=== PATIENT | female | born 1995 | race Caucasian/White ===

== ENCOUNTER → 2021-03-30 08:57 | Outpatient (REF) | payer OTHER, SELFPAY ==
--- NOTE | 2021-03-30 09:08 | ECG_ITS ---
Test Reason : METHADONE CK QT Blood Pressure : / mmHG Vent. Rate : 079 BPM Atrial Rate : 079 BPM P-R Int : 118 ms QRS Dur : 096 ms QT Int : 422 ms P-R-T Axes : 026 047 024 degrees QTc Int : 483 ms Normal sinus rhythm Prolonged QT Abnormal ECG When compared with ECG of 19-SEP-2018 14:04, No significant change was found Referred By: Glory Hyde Electronically Signed By:Carmine Menendez
== END ==
LOC: HO.CARD 08:57
PROVIDERS: PCP Internal Medicine; Visit Provider Family Medicine
DX: Z79.899 Other long term (current) drug therapy (principal)
CPT/HCPCS: 93005

== ENCOUNTER → 2021-07-11 08:49 | Outpatient (REF) | payer OTHER, SELFPAY ==
--- NOTE | 2021-07-11 09:01 | ECG_ITS ---
Test Reason : methadone dose Blood Pressure : / mmHG Vent. Rate : 069 BPM Atrial Rate : 069 BPM P-R Int : 116 ms QRS Dur : 096 ms QT Int : 434 ms P-R-T Axes : 019 057 035 degrees QTc Int : 465 ms Normal sinus rhythm Nonspecific T wave abnormality RSR' or QR pattern in V1 suggests right ventricular conduction delay Abnormal ECG When compared with ECG of 30-MAR-2021 09:17, Nonspecific T wave abnormality now evident in Lateral leads Referred By: Julian Henson Electronically Signed By:MARITA OLIVAS MD
== END ==
LOC: HO.CARD 08:49
PROVIDERS: PCP Internal Medicine; Visit Provider Internal Medicine
DX: F11.20 Opioid dependence, uncomplicated (principal)
CPT/HCPCS: 93005

== ENCOUNTER 2021-08-11 12:09 | Emergency (ER) | payer OTHER, SELFPAY ==
--- NOTE | ~2021-08-11 | CT_ITS ---
EXAMINATION: CT HEAD WITHOUT CONTRAST CLINICAL INFORMATION: Fall, headache. COMPARISON: None TECHNIQUE: Contiguous axial imaging was performed from the skull base to vertex without intravenous administration of contrast. This CT examination was performed using dose optimization techniques as appropriate, variously including the following: *Automated exposure control *Adjustment of mA and/or kV according to patient size (this includes techniques or standardized protocols for targeted exams where dose is matched to indication/reason for exam; i.e. extremities or head) *Use of iterative reconstruction technique DLP: 649 mGy-cm FINDINGS: There is no evidence of acute intracranial hemorrhage or territorial infarction. No abnormal mass effect or midline shift is seen. Rose to white matter differentiation is well preserved. No extra-axial fluid collections are identified. The ventricles are normal in size. There is no abnormal attenuation within the brain parenchyma. The osseous structures and soft tissues are normal. The mastoid air cells and visualized portions of the paranasal sinuses are well aerated. CT/CT head/brain wo con IMPRESSION: No acute intracranial process seen
[2021-08-11 12:10] VITALS: BP 152/97; PULSE 68; RESP 18; TEMP 36.8; O2SAT 98; BMI 27.4
--- NOTE | 2021-08-11 13:00 | ED.HEATRA ---
HPI - Head Injury General Chief complaint: Fall Stated complaint: headache Time Seen by Provider: 08/11/21 12:59 Source: patient Mode of arrival: ambulatory Limitations: no limitations History of Present Illness MD Complaint: head injury and head pain Onset (ago): day(s) (3) Mechanism of Injury: fall Place: home Loss of Consciousness: no Location of injury: occipital Severity: moderate Quality: aching Radiation: none Other Injuries: none Associated symptoms: nausea, vomiting and other (feels dizzy at times) Related Data Previous Rx's Medication Instructions Recorded esqysarslt-oqadvipmxomjs-fgpzftwe 1 tab PO Q6H PRN #20 tab 08/11/21 50 mg-325 mg-40 mg tablet ibuprofen 600 mg tablet 600 mg PO Q6H PRN #30 tab 08/11/21 ondansetron 4 mg disintegrating 4 mg PO Q8H PRN #20 tab 08/11/21 tablet Allergies Allergy/AdvReac Type Severity Reaction Status Date / Time bee pollen [BEE STINGS] Allergy Unknown ANAPHYLAXSI Unverified 06/01/20 16:15 S. buprenorphine [From SUBOXONE] Allergy Unknown HALLUCINATI Unverified 06/01/20 16:15 ONS naloxone [From SUBOXONE] Allergy Unknown HALLUCINATI Unverified 06/01/20 16:15 ONS Review of Systems Review of Systems: Constitutional : No Fever, No Chills, No Fatigue ENT/Mouth : No sore throat, No Rhinorrhea Eyes: No Eye Pain, No Swelling, No Redness Cardiovascular : No Chest Pain, No SOB, No Dyspnea on Exertion Respiratory : No Cough, No Sputum Gastrointestinal : pos Nausea, pos Vomiting, No Diarrhea, No abdominal Pain Genitourinary : No Dysuria, No Urinary Frequency, No Hematuria, Musculoskeletal : No joint pain, No Myalgias, No Joint Swelling Skin : No Skin Lesions, No rash Neuro : No Weakness, No Numbness, No Dizziness, positive Headache Psych : No Anxiety/Panic, No Depression Heme/Lymph: No Bruising, No Bleeding,No Lymphadenopathy Endocrine : No Polyuria, No Polydipsia All other systems reviewed and are negative [facility] Past Medical History Attestation statement: The following information was validated with the patient. Medical History Murmur, cardiac Social History Social History (Updated 08/11/21 @ 13:42 by Sara Soriano DO) Alcohol intake: never Patient Tobacco Use Status: Current everyday Tobacco user Use of substances other than those prescribed or required for medical reasons: No Substance Use Type: Crack/Cocaine and Heroin Advance Directives: No Advance Directives Information Provided: Yes Patient : No Physical Exam Vital Signs: Vital Signs: Last Vital Signs Temp 98.2 F 08/11/21 12:10 Pulse 61 08/11/21 13:17 Resp 20 08/11/21 13:17 BP 114/79 08/11/21 13:17 Pulse Ox 98 08/11/21 12:10 Body Mass Index 27.4 Appearance: Alert. Oriented X3. No acute distress. Eyes: Pupils equal, round and reactive to light. ENT: Pharynx normal. Normal TMs Neck: Normal inspection. Neck supple. CVS: Normal heart rate and rhythm. Pulses normal. Respiratory: No respiratory distress. Breath sounds normal. Abdomen: Soft and nontender. Skin: Skin warm and dry. Normal skin color. Normal skin turgor. Extremities: No lower extremity edema. No calf ttp Neuro: Oriented X 3. No motor deficit. No sensory deficit. Course Course Course Narrative: negative head CT stable for DC MDM - Head Injury MDM Narrative Medical decision making narrative: 26 yo female with hx of substance abuse reports falling 3 days ago and hitting her head since then worsening headaches with n/v - at this time she is GCS 15 not on oral anti-coagulation. Heron obtain CT head for trauma, medications and anticipate dc home with concussion precautions Lab Data Labs: Lab Results 08/11/21 Range/Units 13:55 Urine Test NEGATIVE (NEGATIVE) Discharge Plan Discharge Clinical Impression: Concussion without loss of consciousness Qualifiers: Encounter type: initial encounter Qualified Code(s): S06.0X0A - Concussion without loss of consciousness, initial encounter Patient Disposition: Home, Self-Care Instructions: Concussion (ED) Additional Instructions: return to ED for any worsening symptoms or concerns Prescriptions: New iyenqjgxqq-ysvzfwhcbjgrm-aern 50-325-40 mg tablet 1 tab PO Q6H PRN (Reason: pain) Qty: 20 RF: 0 ibuprofen 600 mg tablet 600 mg PO Q6H PRN (Reason: pain) Qty: 30 RF: 0 ondansetron 4 mg tablet,disintegrating 4 mg PO Q8H PRN (Reason: nausea and vomiting) Qty: 20 RF: 0 Stand Alone Forms: Work/School Release
[2021-08-11 13:17] VITALS: BP 114/79; PULSE 61; RESP 20
[2021-08-11] MEDS: Ondansetron ODT 4 MG TAB.RAPDIS TRANSLINGU (13:46)
[2021-08-11] MEDS: Butalb/Acetamin/Caff 50/325/40 TABLET 1 TAB PO (13:46)
[2021-08-11 14:18] LABS: UPreg QC Valid YES; Urine Pregnancy NEGATIVE (NEGATIVE)
== END 2021-08-11 15:03 | disposition home or self-care (01) ==
PROVIDERS: Emergency Provider Emergency Medicine; PCP Internal Medicine
DX: S06.0X0A Concussion without loss of consciousness, initial encounter (principal); W18.30XA Fall on same level, unspecified, initial encounter; F17.200 Nicotine dependence, unspecified, uncomplicated; F19.10 Other psychoactive substance abuse, uncomplicated; Y93.9 Activity, unspecified; Y92.039 Unspecified place in apartment as the place of occurrence of the external cause; Y99.9 Unspecified external cause status
CPT/HCPCS: 70450; 81025; 99284

== ENCOUNTER 2022-01-18 06:00 | Emergency (ER) | payer OTHER, SELFPAY ==
--- NOTE | ~2022-01-18 | CT_ITS ---
EXAMINATION: CT ABDOMEN AND PELVIS WITHOUT CONTRAST CLINICAL INFORMATION: Nausea, vomiting, weakness COMPARISON: CT abdomen and pelvis 09/19/2018 TECHNIQUE: Multidetector volumetric imaging was performed from the superior aspect of the liver through the pubic symphysis. Sagittal and coronal reformatted images were obtained on the technologist's workstation. This CT examination was performed using dose optimization techniques as appropriate, variously including the following: *Automated exposure control *Adjustment of mA and/or kV according to patient size (this includes techniques or standardized protocols for targeted exams where dose is matched to indication/reason for exam; i.e. extremities or head) *Use of iterative reconstruction technique DLP: 444 mGy-cm FINDINGS: LUNG BASES: The visualized lung bases are unremarkable. LIVER, GALLBLADDER, AND BILIARY TREE: The liver is normal in size, shape, and attenuation. No focal hepatic lesion or biliary ductal dilatation is present. Incidental note of focal fatty infiltration at the falciform. Gallbladder is unremarkable. PANCREAS: Unremarkable. SPLEEN: Unremarkable. ADRENAL GLANDS: Unremarkable. KIDNEYS AND URETERS: The kidneys are normal in size, shape, and attenuation. No hydronephrosis, or hydroureter. There are several nonobstructing renal calculi. The largest on the right is a 4 mm mid pole calculus located 6.1 cm from the posterior mid axillary line. There are 2 punctate calculi at the lower pole the left kidney, 6.1 cm from posterior midaxillary line. There is no significant perinephric stranding. No ureteral calculi are seen. BLADDER: Partially distended, normal in contour. No bladder calculi or bladder lesions. GASTROINTESTINAL TRACT: The esophagus and stomach are unremarkable. The small and large bowel are normal in caliber. There is question minimal wall thickening/reactive change at the mid ascending colon best appreciated on coronal images. No other bowel wall inflammatory changes are seen. There is a normal appendix (coronal image 30, series 7) ABDOMINAL WALL: No significant hernia is appreciated. LYMPH NODES: Normal. VASCULAR: Unremarkable. PELVIC VISCERA: Uterus is unremarkable. There is a low-attenuation 3.2 x 1.9 cm structure within the left adnexa, possibly representing a cyst. Right adnexa is unremarkable. There is trace fluid in the cul-de-sac which may be physiologic. OSSEOUS STRUCTURES: Unremarkable. CT/CT abdomen pelvis wo con IMPRESSION: Equivocal mild wall thickening and reactive change associated with a short segment of the ascending colon. Would correlate for colitis. Low-attenuation 3.2 x 1.9 cm structure within the left adnexa which may represent a cyst and a small amount of fluid in the pelvis which may be physiologic in a patient of this age. Further evaluation with ultrasound could be considered. Bilateral nonobstructing renal calculi. Fleischner guidelines were followed.
[2022-01-18 06:10] VITALS: BP 124/78; PULSE 74; RESP 18; TEMP 37.6; O2SAT 99; BMI 25.6
--- NOTE | 2022-01-18 06:45 | ED_ITS ---
HPI - Nausea/Vomiting/Diarrhea General Chief complaint: Nausea/Vomiting/Diarrhea Stated complaint: Vomiting Time Seen by Provider: 01/18/22 06:14 History of Present Illness HPI Narrative: Patient is 26-year-old female presents today with having nausea vomiting diarrhea started last night. A long history of being on methadone. Patient presents today with nausea vomiting generalized malaise question diarrhea. Vomiting initially mostly food then subsequently have very small streaks of blood. MD elicited complaint: nausea and vomiting Related Data Home Medications Medication Instructions Recorded Confirmed buspirone 15 mg tablet 1 tab PO BID 01/18/22 01/18/22 clonidine HCl 0.1 mg tablet 1 tab PO TID 01/18/22 01/18/22 clonidine HCl 0.2 mg tablet 1 tab PO TID 01/18/22 01/18/22 methadone 10 mg/mL oral concentrate 150 mg PO DAILY 01/18/22 01/18/22 propranolol 20 mg tablet 1 tab PO BID 01/18/22 01/18/22 Previous Rx's Medication Instructions Recorded ondansetron 4 mg disintegrating 4 mg PO TID PRN 5 Days #10 tab 01/18/22 tablet Allergies Allergy/AdvReac Type Severity Reaction Status Date / Time bee pollen [BEE STINGS] Allergy Unknown ANAPHYLAXSI Verified 01/18/22 06:28 S. buprenorphine [From SUBOXONE] Allergy Unknown HALLUCINATI Verified 01/18/22 06:28 ONS naloxone [From SUBOXONE] Allergy Unknown HALLUCINATI Verified 01/18/22 06:23 ONS Review of Systems Review of Systems: No fever no chills Positive nausea vomiting Positive generalized malaise Yes all other systems are reviewed and are negative [facility] Past Medical History Attestation statement: The following information was validated with the patient. Medical History Murmur, cardiac Social History Social History Alcohol intake: unknown Patient Tobacco Use Status: Current everyday Tobacco user Use of substances other than those prescribed or required for medical reasons: Yes Substance Use Type: Crack/Cocaine and Heroin Advance Directives: No Patient : No Physical Exam Vital Signs: Vital Signs: Last Vital Signs Temp 99.6 F 01/18/22 06:10 Pulse 71 05/06/22 10:38 Resp 18 01/18/22 10:38 BP 106/53 L 01/18/22 10:38 Pulse Ox 97 01/18/22 10:38 BMI result Body Mass Index 25.6 Appearance: Alert. Oriented X3. No acute distress. Eyes: Pupils equal, round and reactive to light. ENT: Pharynx normal. Neck: Normal inspection. Neck supple. No lymph nodes noted. No crepitus CVS: Normal heart rate and rhythm. Pulses normal. Normal S1 and S2 Respiratory: No respiratory distress. Breath sounds normal. No Wheezing. No rales Abdomen: Soft and nontender. No rigidity. No distention. good BS x4 Skin: Skin warm and dry. Normal skin color. Normal skin turgor. Extremities: No lower extremity edema. Neurovascular intact to all extremities. No Lacerations. No Rash Neuro: Oriented X 3. No motor deficit. No sensory deficit. Moving all extermities. No slurred speech MDM - Nausea/Vomiting/Diarrhea MDM Narrative Medical decision making narrative: Patient is fair appearing. Had nausea vomiting diarrhea. An external jugular IV was placed by myself without any complication on left side. Has a long history abusing opioids. Currently on methadone. Patient given her dose of methadone after the dose of verified. Patient also admitted to using cocaine last night. Patient's electrolytes are unremarkable. IV fluids given x2 L. Zofran given for nausea. Symptomatic lead improved. Patient's CT scan of the abdomen showed no obstruction or abscess. ? Colitis bruit will discharge patie nt home. Medical Records Attestation: I reviewed the patient's medical records. Lab Data Attestation: I reviewed the patient's lab results. Result diagrams: 01/18/22 09:44 01/18/22 09:44 Labs: Lab Results 01/18/22 01/18/22 01/18/22 Range/Units 06:55 09:44 09:44 WBC 12.5 H (4.8-10.8) X10*3/uL RBC 4.32 (4.20-5.50) X10*6/uL Hgb 12.8 (12.0-16.0) g/dl Hct 36.8 L (37.0-47.0) % MCV 85.2 (80.0-98.0) fL MCH 29.6 (27.0-33.0) pg MCHC 34.8 (31.0-35.0) g/dl RDW 12.7 (11.0-16.0) % Plt Count 129 L (160-400) X10*3/uL MPV 13.0 H (9.4-12.3) fL Immature Gran % (Auto) 0.3 (0.0-0.4) % Neut % (Auto) 76.8 H (45-73) % Lymph % (Auto) 18.4 L (20-40) % [facility] [facility] % (Auto) 4.3 (2-11) % Eos % (Auto) 0.0 (0-4) % Baso % (Auto) 0.2 (0-2) % Lymph # (Auto) 2.3 (1.2-4.9) X10*3/uL [facility] [place] [facility] # (Auto) 0.5 (0.1-1.2) X10*3/uL Eos # (Auto) 0.0 (0.0-0.4) X10*3/uL Baso # (Auto) 0.0 (0.0-0.2) X10*3/uL Abs Immat Gran (auto) 0.04 H (0.00-0.03) X10*3/uL Absolute Neuts (auto) 9.6 H (2.0-8.3) x10*3/uL Absolute Nucleated RBC 0.000 (0.0-0.012) X10*3/uL Nucleated RBC % (auto) 0.0 (0.0-0.2) /100WBC Sodium 139 (135-145) mmol/L Potassium 3.7 (3.3-5.1) mmol/L Chloride 104 (96-108) mmol/L Carbon Dioxide 21 L (22-29) mmol/L Anion Gap 18 (12-20) BUN 8 L (9-16) mg/dL Creatinine 0.82 (0.5-1.4) mg/dL Estim Creat Clear Calc 90.2 Estimated GFR > 60 Random Glucose 129 H (60-115) mg/dL Calcium 10.2 (8.4-10.2) mg/dL Total Bilirubin 0.6 (0.0-1.0) mg/dL Direct Bilirubin 0.3 (0.0-0.5) mg/dL AST 23 (5-31) U/L ALT 21 (0-31) U/L Alkaline Phosphatase 63 (39-117) U/L Total Protein 7.9 (6.5-8.0) g/dL Albumin 4.8 (3.5-5.0) g/dL Lipase 5 L (8-78) U/L Beta HCG, Quant < 2 mIU/mL COVID-19 (JANINE) Negative (Negative) COVID-19 Clin Com See Note Discharge Plan Discharge Clinical Impression: Dehydration, Nausea and vomiting, Diarrhea Patient Disposition: Home, Self-Care Instructions: Cocaine Abuse (ED), Acute Nausea and Vomiting (ED), Acute Diarrhea (ED) Prescriptions: New ondansetron 4 mg tablet,disintegrating 4 mg PO TID PRN (Reason: nausea and vomiting) 5 Days Qty: 10 0RF No Action clonidine HCl 0.1 mg tablet 1 tab PO TID 0RF propranolol 20 mg tablet 1 tab PO BID 0RF buspirone 15 mg tablet 1 tab PO BID 0RF clonidine HCl 0.2 mg tablet 1 tab PO TID 0RF methadone 10 mg/mL Concentrate 150 mg PO DAILY 0RF Referrals: Physician,Unknown J [Primary Care Provider] - (Please follow-up with your primary physician. Please stop using recreational drugs. Close follow-up on an outpatient basis for)
[2022-01-18 07:20] LABS: COVID-19 Test Negative (Negative)
[2022-01-18] MEDS: methADONE HCl 20 MG/2 ML ORAL.CONC 150 MG PO (08:22)
[2022-01-18] MEDS: ondansetron HCL 4 MG/2 ML VIAL IVPUSH ×2 (09:46→13:44)
[2022-01-18 09:47] LABS: MANUAL DIFF FLAG NO
[2022-01-18] MEDS: 0.9 % Sodium Chloride 1,000 ML 999 ML IV ×2 (09:47→12:05)
[2022-01-18 09:52] LABS: Basophils Percent Auto 0.2 % (0-2); Hematocrit 36.8 % (37.0-47.0); Hemoglobin 12.8 g/dl (12.0-16.0); Imm Gran Abs Auto 0.04 X10*3/uL (0.00-0.03); Imm Gran Pct Auto 0.3 % (0.0-0.4); Lymphocytes Absolute Auto 2.3 X10*3/uL (1.2-4.9); Lymphocytes Percent Auto 18.4 % (20-40); Mean Corpuscular HGB Conc 34.8 g/dl (31.0-35.0); Mean Corpuscular Hemoglobin 29.6 pg (27.0-33.0); Mean Corpuscular Volume 85.2 fL (80.0-98.0); Monocytes Absolute Auto 0.5 X10*3/uL (0.1-1.2); Monocytes Percent Auto 4.3 % (2-11); Neutrophils Absolute Auto 9.6 x10*3/uL (2.0-8.3); Neutrophils Percent Auto 76.8 % (45-73); Platelet Count 129 X10*3/uL (160-400); Red Blood Count 4.32 X10*6/uL (4.20-5.50); Red Cell Distribution Width 12.7 % (11.0-16.0); White Blood Count 12.5 X10*3/uL (4.8-10.8)
[2022-01-18 10:05] LABS: Alanine Aminotransferase 21 U/L (0-31); Albumin Level 4.8 g/dL (3.5-5.0); Alkaline Phosphatase 63 U/L (39-117); Anion Gap 18 (12-20); Aspartate Amino Transferase 23 U/L (5-31); Bilirubin Direct 0.3 mg/dL (0.0-0.5); Bilirubin Total 0.6 mg/dL (0.0-1.0); Blood Urea Nitrogen 8 mg/dL (9-16); Calcium 10.2 mg/dL (8.4-10.2); Carbon Dioxide 21 mmol/L (22-29); Chloride 104 mmol/L (96-108); Creatinine Clr Calc Pharmacy 90.2; Estimated Glomerular Filt Rate > 60; Glucose Random 129 mg/dL (60-115); Lipase 5 U/L (8-78); Potassium 3.7 mmol/L (3.3-5.1); Sodium 139 mmol/L (135-145); Total Protein 7.9 g/dL (6.5-8.0)
[2022-01-18 10:11] LABS: HCG Quantitative < 2 mIU/mL
--- NOTE | 2022-01-18 10:28 | PC.NURSE ---
pt with difficult veins for IV placement, Dr Long did a left EJ without incidience and IV fluids and labs done. Still has episodes of some vomiting and with that she has epigastric pain. Going to CT at this timept with vomiting for 3 days and feels paralyzed , she is moving all her extremities. VSS pain is middle of abdomen.
[2022-01-18 10:38] VITALS: BP 106/53; PULSE 71; RESP 18; O2SAT 97
[2022-01-18 13:45] VITALS: BP 98/51; PULSE 74; RESP 15; O2SAT 96
== END 2022-01-18 15:03 | disposition home or self-care (01) ==
PROVIDERS: Emergency Provider Emergency Medicine Emergency Medical Services
DX: E86.0 Dehydration (principal); R11.2 Nausea with vomiting, unspecified; R19.7 Diarrhea, unspecified; F11.20 Opioid dependence, uncomplicated; Z20.822 Contact with and (suspected) exposure to COVID-19
CPT/HCPCS: 36410; 36415; 74176; 80048; 80076; 83690; 84702; 85025; 87635; 96361; 96374; 96376; 99285; J2405

== ENCOUNTER 2022-02-24 06:57 | Emergency (ER) | payer OTHER, SELFPAY ==
--- NOTE | ~2022-02-24 | CT_ITS ---
EXAMINATION: CT ABDOMEN AND PELVIS WITHOUT CONTRAST CLINICAL INFORMATION: Right flank pain and hematuria COMPARISON: Previous CT of the abdomen and pelvis January 2022 TECHNIQUE: Multidetector volumetric imaging was performed from the superior aspect of the liver through the pubic symphysis. Sagittal and coronal reformatted images were obtained on the technologist's workstation. This CT examination was performed using dose optimization techniques as appropriate, variously including the following: *Automated exposure control *Adjustment of mA and/or kV according to patient size (this includes techniques or standardized protocols for targeted exams where dose is matched to indication/reason for exam; i.e. extremities or head) *Use of iterative reconstruction technique DLP: 397 mGy-cm FINDINGS: LUNG BASES: The visualized lung bases are unremarkable. LIVER, GALLBLADDER, AND BILIARY TREE: The liver is normal in size, shape, and attenuation. No focal hepatic lesion or biliary ductal dilatation is present. The gallbladder is unremarkable with no evidence of radiopaque gallstones, gallbladder wall thickening, or obvious pericholecystic inflammatory changes. PANCREAS: Unremarkable. SPLEEN: Unremarkable. ADRENAL GLANDS: Unremarkable. KIDNEYS AND URETERS: There is mild right ureteral dilatation. There are 2 new small right pelvic calcifications measuring 2 mm axial image 65 and 4 mm axial image 67 series 3 questionable for distal ureteral stones. There is no hydronephrosis. There are small bilateral renal stones. Largest stone measures 3 mm in the lower pole of the right kidney. BLADDER: Unremarkable. GASTROINTESTINAL TRACT: The small and large bowel are unremarkable. The appendix is unremarkable. ABDOMINAL WALL: No significant hernia is appreciated. LYMPH NODES: Normal. VASCULAR: Unremarkable. PELVIC VISCERA: Unremarkable. OSSEOUS STRUCTURES: Unremarkable. CT/CT abdomen pelvis wo con IMPRESSION: Small bilateral renal stones. Mild right ureteral dilatation and question 2 new right distal ureteral stones measuring 2 and 4 mm. Fleischner guidelines were followed.
[2022-02-24 07:00] VITALS: BP 131/91; PULSE 74; RESP 18; TEMP 36.1; O2SAT 100; BMI 24.7
[2022-02-24 07:26] LABS: Appearance Urine CLEAR; Color Urine YELLOW; Glucose Urine UA NEG (NEG); Leukocyte Esterase Urine 1+ (NEG); Nitrite Urine NEG (NEG); Specific Gravity - Urine <= 1.005 (1.005-1.025); UACC Culture Trigger YES; Urine Blood 3+ (NEG); Urine Ketones NEG (NEG); Urine Protein NEG (NEG-TRACE)
[2022-02-24 07:56] LABS: MANUAL DIFF FLAG NO
[2022-02-24 08:02] LABS: Basophils Percent Auto 0.3 % (0-2); Eosinophils Absolute Auto 0.3 X10*3/uL (0.0-0.4); Eosinophils Percent Auto 4.2 % (0-4); Hematocrit 41.7 % (37.0-47.0); Hemoglobin 13.4 g/dl (12.0-16.0); Imm Gran Abs Auto 0.02 X10*3/uL (0.00-0.03); Imm Gran Pct Auto 0.3 % (0.0-0.4); Lymphocytes Absolute Auto 3.1 X10*3/uL (1.2-4.9); Lymphocytes Percent Auto 43.7 % (20-40); Mean Corpuscular HGB Conc 32.1 g/dl (31.0-35.0); Mean Corpuscular Hemoglobin 28.7 pg (27.0-33.0); Mean Corpuscular Volume 89.3 fL (80.0-98.0); Mean Platelet Volume 12.6 fL (9.4-12.3); Monocytes Absolute Auto 0.6 X10*3/uL (0.1-1.2); Monocytes Percent Auto 7.9 % (2-11); Neutrophils Absolute Auto 3.1 x10*3/uL (2.0-8.3); Neutrophils Percent Auto 43.6 % (45-73); Platelet Count 135 X10*3/uL (160-400); Red Blood Count 4.67 X10*6/uL (4.20-5.50); Red Cell Distribution Width 12.5 % (11.0-16.0); White Blood Count 7.1 X10*3/uL (4.8-10.8)
[2022-02-24 08:12] LABS: Anion Gap 14 (12-20); Blood Urea Nitrogen 5 mg/dL (9-16); Calcium 9.8 mg/dL (8.4-10.2); Carbon Dioxide 28 mmol/L (22-29); Chloride 101 mmol/L (96-108); Creatinine Clr Calc Pharmacy 79.2; Estimated Glomerular Filt Rate > 60; Glucose Random 100 mg/dL (60-115); Potassium 4.3 mmol/L (3.3-5.1); Sodium 139 mmol/L (135-145)
[2022-02-24 08:13] VITALS: BP 123/64; PULSE 65; RESP 18; TEMP 37; O2SAT 99
[2022-02-24 08:15] LABS: Squamous Epithelial Cell Urine 2+ /LPF; UACC CULT YES
[2022-02-24 08:16] LABS: UPreg QC Valid YES; Urine Pregnancy NEGATIVE (NEGATIVE)
--- NOTE | 2022-02-24 08:19 | PC.NURSE ---
patient A/O x4 .c/o 4 days of increased urination , pain and small amount of blood in urine . prior history of UTI . labs and urinalysis sent , results pending . call banks within reach .
--- NOTE | 2022-02-24 08:23 | ED_ITS ---
HPI - Female Genitourinary General Chief complaint: Urogenital-Female Stated complaint: Blood in urine/?UTI Time Seen by Provider: 02/24/22 07:36 Source: patient Mode of arrival: ambulatory Limitations: no limitations History of Present Illness HPI Narrative: 27-year-old female came in for evaluation of urinary frequency and dysuria for the past 3 days, started initially by seen blood in the urine, patient confirmed that she is not or on her menses, the patient started to few urinary frequency with dysuria and burning sensation with urination now pain is more constant radiating toward right flank area. No anorexia, felt nauseous earlier but resolved, no vomiting, no fever. Similar to her previous UTI, never had abdominal surgery in the past. Related Data Home Medications Medication Instructions Recorded Confirmed buspirone 15 mg tablet 1 tab PO BID 01/18/22 01/18/22 clonidine HCl 0.1 mg tablet 1 tab PO TID 01/18/22 01/18/22 clonidine HCl 0.2 mg tablet 1 tab PO TID 01/18/22 01/18/22 methadone 10 mg/mL oral concentrate 150 mg PO DAILY 01/18/22 01/18/22 propranolol 20 mg tablet 1 tab PO BID 01/18/22 01/18/22 Previous Rx's Medication Instructions Recorded ondansetron 4 mg disintegrating 4 mg PO TID PRN nausea and 01/18/22 tablet vomiting 5 days #10 tabs nitrofurantoin 100 mg PO BID #14 caps 02/24/22 monohydrate/macrocrystals 100 mg capsule (Macrobid) Allergies Allergy/AdvReac Type Severity Reaction Status Date / Time bee pollen [BEE STINGS] Allergy Unknown ANAPHYLAXSI Verified 01/18/22 06:28 S. buprenorphine [From SUBOXONE] Allergy Unknown HALLUCINATI Verified 01/18/22 06:28 ONS naloxone [From SUBOXONE] Allergy Unknown HALLUCINATI Verified 01/18/22 06:23 ONS Review of Systems Review of Systems: All other systems are reviewed and are negative Constitutional: Reports as per HPI and Reports no additional constitutional complaints Eyes: Reports as per HPI and Reports no additional eye complaints Reports system reviewed and no additional complaints, except as documented Cardiovascular: Reports as per HPI and Reports no additional cardiovascular complaints Respiratory: Reports as per HPI and Reports no additional respiratory complaints Gastrointestinal: Reports as per HPI and Reports no additional gastrointestinal complaints Genitourinary: Reports no additional female genitourinary complaints Musculoskeletal: Reports no additional musculoskeletal complaints Skin/Breast: Reports system reviewed and no additional complaints, except as docu Psychiatric: Reports no additional psychiatric complaints Endocrine: Reports no additional endocrine complaints Hematologic/Lymphatic: Reports no additional hematologic/lymphatic complaints Allergic/Immunologic: Reports no additional allergic/immunologic complaints Reports system reviewed and no additional complaints, except as documented and Reports Abnormal speech present [facility] Past Medical History Medical History Murmur, cardiac Social History Social History Alcohol intake: unknown Patient Tobacco Use Status: Current everyday Tobacco user Use of substances other than those prescribed or required for medical reasons: Yes Substance Use Type: Marijuana Last Used Substance: Days (ago) Any prior treatment program specific to substance use: No Advance Directives: No Patient : No Physical Exam Vital Signs: Vital Signs: Last Vital Signs Temp 98.6 F 02/24/22 08:13 Pulse 65 02/24/22 08:13 Resp 18 02/24/22 08:13 BP 123/64 02/24/22 08:13 Pulse Ox 99 02/24/22 08:13 O2 Del Method 02/24/22 08:13 BMI result Body Mass Index 24.7 Vital signs have been reviewed as appeared to be correct. Blood pressure nor mal. Heart rate normal. Respiration rate normal. Temperature normal. Oxygen saturation normal. Appearance: Alert. Oriented X3. No acute distress. Head: Normal external exam. Normocephalic. Atraumatic. No Orr signs noted. No raccoon eyes noted Eyes: PERRLA. EOMI. Conjunctiva and sclera normal. Eyelids normal. ENT: TM's Normal. Pharynx normal. Uvula midline. Moist mucous membranes. No trismus noted. No drooling noted. No muffled voice noted. Neck: Normal inspection. Neck supple. FROM. No adenopathy. Thyroid Normal. No meningeal signs. No neck mass noted. CVS: Normal heart rate and rhythm. Heart sound normal. No murmurs noted. Pulses normal throughout. Respiratory: No respiratory distress. Painless inspiration. Breath sounds normal. No wheezes/rales/rhonchi noted. Chest nontender. No accessory muscle usage noted or decreased air movement noted. Abdomen: Soft, right lower quadrant tenderness, no rebound tenderness.. Bowel sounds normal in all 4 quadrants. No distention noted. No organomegaly noted. No visible injury noted. Back: Right CVA tenderness. Full range of motion noted. Skin: Skin warm and dry. Normal skin color. Normal skin turgor. No rashes/lesions/lacerations noted. Extremities: No lower extremity edema. Extremities exhibit normal range of motion. Extremities nontender. Neuro: Oriented X 3. Cranial nerve exam: II-XII are grossly intact No motor deficit. No sensory deficit. Reflexes normal. Course Course Course Narrative: Assessment and plan. 27 years old female came in for dysuria, urinary frequency and hematuria Physical exam and the CT is consistent with a kidney stone, however patient has no pain. Will start the patient on Macrobid and drinking plenty of fluids. MDM - Female Genitourinary Lab Data Attestation: I reviewed the patient's lab results. Result diagrams: 02/24/22 07:51 02/24/22 07:51 Labs: Lab Results 02/24/22 02/24/22 02/24/22 Range/Units 07:10 07:51 07:51 WBC 7.1 (4.8-10.8) X10*3/uL RBC 4.67 (4.20-5.50) X10*6/uL Hgb 13.4 (12.0-16.0) g/dl Hct 41.7 (37.0-47.0) % MCV 89.3 (80.0-98.0) fL MCH 28.7 (27.0-33.0) pg MCHC 32.1 (31.0-35.0) g/dl RDW 12.5 (11.0-16.0) % Plt Count 135 L (160-400) X10*3/uL MPV 12.6 H (9.4-12.3) fL Immature Gran % (Auto) 0.3 (0.0-0.4) % Neut % (Auto) 43.6 L (45-73) % Lymph % (Auto) 43.7 H (20-40) % [place] % (Auto) 7.9 (2-11) % Eos % (Auto) 4.2 H (0-4) % Baso % (Auto) 0.3 (0-2) % Lymph # (Auto) 3.1 (1.2-4.9) X10*3/uL [place] # (Auto) 0.6 (0.1-1.2) X10*3/uL Eos # (Auto) 0.3 (0.0-0.4) X10*3/uL Baso # (Auto) 0.0 (0.0-0.2) X10*3/uL Abs Immat Gran (auto) 0.02 (0.00-0.03) X10*3/uL Absolute Neuts (auto) 3.1 (2.0-8.3) x10*3/uL Absolute Nucleated RBC 0.000 (0.0-0.012) X10*3/uL Nucleated RBC % (auto) 0.0 (0.0-0.2) /100WBC Sodium 139 (135-145) mmol/L Potassium 4.3 (3.3-5.1) mmol/L Chloride 101 (96-108) mmol/L Carbon Dioxide 28 (22-29) mmol/L Anion Gap 14 (12-20) BUN 5 L (9-16) mg/dL Creatinine 0.91 (0.5-1.4) mg/dL Estim Creat Clear Calc 79.2 Estimated GFR > 60 Random Glucose 100 (60-115) mg/dL Calcium 9.8 (8.4-10.2) mg/dL Urine Color YELLOW Urine Appearance CLEAR Urine pH 6.0 (5.0-8.0) Ur Specific [place] <= 1.005 (1.005-1.025) Urine Protein NEG (NEG-TRACE) MG/DL Urine Glucose (UA) NEG (NEG) MG/DL Urine Ketones NEG (NEG) MG/DL Urine Blood 3+ H (NEG) Urine Nitrite NEG (NEG) Ur Leukocyte Esterase 1+ H (NEG) Urine RBC 10-14 H (0) /HPF Urine WBC 5-9 H (0-4) /HPF Ur Squamous Epith Cells 2+ /LPF Urine Bacteria NONE /LPF Urine Test (NEGATIVE) 02/24/22 Range/Units 07:51 WBC (4.8-10.8) X10*3/uL RBC (4.20-5.50) X10*6/uL Hgb (12.0-16.0) g/dl Hct (37.0-47.0) % MCV (80.0-98.0) fL MCH (27.0-33.0) pg MCHC (31.0-35.0) g/dl RDW (11.0-16.0) % Plt Count (160-400) X10*3/uL MPV (9.4-12.3) fL Immature Gran % (Auto) (0.0-0.4) % Neut % (Auto) (45-73) % Lymph % (Auto) (20-40) % [place] % (Auto) (2-11) % Eos % (Auto) (0-4) % Baso % (Auto) (0-2) % Lymph # (Auto) (1.2-4.9) X10*3/uL [place] # (Auto) (0.1-1.2) X10*3/uL Eos # (Auto) (0.0-0.4) X10*3/uL Baso # (Auto) (0.0-0.2) X10*3/uL Abs Immat Gran (auto) (0.00-0.03) X10*3/uL Absolute Neuts (auto) (2.0-8.3) x10*3/uL Absolute Nucleated RBC (0.0-0.012) X10*3/uL Nucleated RBC % (auto) (0.0-0.2) /100WBC Sodium (135-145) mmol/L Potassium (3.3-5.1) mmol/L Chloride (96-108) mmol/L Carbon Dioxide (22-29) mmol/L Anion Gap (12-20) BUN (9-16) mg/dL Creatinine (0.5-1.4) mg/dL Estim Creat Clear Calc Estimated GFR Random Glucose (60-115) mg/dL Calcium (8.4-10.2) mg/dL Urine Color Urine Appearance Urine pH (5.0-8.0) Ur Specific [place] (1.005-1.025) Urine Protein (NEG-TRACE) MG/DL Urine Glucose (UA) (NEG) MG/DL Urine Ketones (NEG) MG/DL Urine Blood (NEG) Urine Nitrite (NEG) Ur Leukocyte Esterase (NEG) Urine RBC (0) /HPF Urine WBC (0-4) /HPF Ur Squamous Epith Cells /LPF Urine Bacteria /LPF Urine Test NEGATIVE (NEGATIVE) Imaging Data CT scan - abdomen: Attestation: I personally reviewed and interpreted this imaging study as follows: Radiologist's impression: Small bilateral renal stones. Mild right ureteral dilatation and question 2 new right distal ureteral stones measuring 2 and 4 mm. Discharge Plan Discharge Clinical Impression: Urinary tract infection, Kidney stone Patient Disposition: Home, Self-Care Instructions: Kidney Stones (ED), Urinary Tract Infection in Women (ED) Prescriptions: New nitrofurantoin monohyd/m-cryst [Macrobid] 100 mg capsule 100 mg PO BID Qty: 14 0RF Rx Instructions: must administer with a meal/food No Action clonidine HCl 0.1 mg tablet 1 tab PO TID propranolol 20 mg tablet 1 tab PO BID buspirone 15 mg tablet 1 tab PO BID clonidine HCl 0.2 mg tablet 1 tab PO TID methadone 10 mg/mL Concentrate 150 mg PO DAILY ondansetron 4 mg tablet,disintegrating 4 mg PO TID PRN (Reason: nausea and vomiting) 5 Days Qty: 10 0RF Referrals: Kolton Pruitt III, MD [Primary Care Provider] -
[2022-02-24] MEDS: Nitrofurantoin Monohyd/M-Cryst 100 MG CAPSULE PO (09:24)
== END 2022-02-24 10:30 | disposition home or self-care (01) ==
PROVIDERS: Emergency Provider Emergency Medicine; PCP Internal Medicine
DX: N39.0 Urinary tract infection, site not specified (principal); N20.0 Calculus of kidney
CPT/HCPCS: 36415; 74176; 80048; 81001; 81025; 85025; 87086; 99284

== ENCOUNTER 2022-06-04 06:41 | Emergency (ER) | payer OTHER, SELFPAY ==
[2022-06-04 07:05] VITALS: BP 129/76; PULSE 76; RESP 16; TEMP 36.6; O2SAT 100; BMI 23.8
[2022-06-04 09:40] VITALS: BP 108/56; PULSE 55; RESP 16; O2SAT 99
--- NOTE | 2022-06-04 09:45 | ED.NAVMDI ---
HPI - Nausea/Vomiting/Diarrhea General Chief complaint: Nausea/Vomiting/Diarrhea Stated complaint: vomiting Time Seen by Provider: 06/04/22 09:45 Source: patient Mode of arrival: ambulatory Limitations: no limitations History of Present Illness HPI Narrative: vomiting for the past few days MD elicited complaint: nausea, vomiting and diarrhea Onset (ago): day(s) Associated nausea: Yes Associated abdominal pain: Yes Severity: mild Associated symptoms: denies other symptoms Related Data Home Medications Medication Instructions Recorded Confirmed buspirone 15 mg tablet 1 tab PO BID 01/18/22 01/18/22 clonidine HCl 0.1 mg tablet 1 tab PO TID 01/18/22 01/18/22 clonidine HCl 0.2 mg tablet 1 tab PO TID 01/18/22 01/18/22 methadone 10 mg/mL oral concentrate 150 mg PO DAILY 01/18/22 01/18/22 propranolol 20 mg tablet 1 tab PO BID 01/18/22 01/18/22 Previous Rx's Medication Instructions Recorded ondansetron 4 mg disintegrating 4 mg PO TID PRN nausea and 01/18/22 tablet vomiting 5 days #10 tabs nitrofurantoin 100 mg PO BID #14 caps 02/24/22 monohydrate/macrocrystals 100 mg capsule (Macrobid) ondansetron 4 mg disintegrating 4 mg PO Q8H 4 days #12 tabs 06/04/22 tablet Allergies Allergy/AdvReac Type Severity Reaction Status Date / Time bee pollen [BEE STINGS] Allergy Unknown ANAPHYLAXSI Verified 01/18/22 06:28 S. buprenorphine [From SUBOXONE] Allergy Unknown HALLUCINATI Verified 01/18/22 06:28 ONS naloxone [From SUBOXONE] Allergy Unknown HALLUCINATI Verified 01/18/22 06:23 ONS Review of Systems Constitutional: Constitutional: Reports no additional constitutional complaints Eyes: Eyes: Reports no additional eye complaints ENT: Denies dizziness Cardiovascular: Cardiovascular: Reports no additional cardiovascular complaints Respiratory: Respiratory: Reports as per HPI Gastrointestinal: Gastrointestinal: Reports nausea Genitourinary: Genitourinary: Reports no additional female genitourinary complaints Musculoskeletal: Musculoskeletal: Reports no additional musculoskeletal complaints Integumentary/Breasts: Skin/Breast: Denies rash Neurologic: Reports system reviewed and no additional complaints, except as documented, Denies dizziness and Denies Sensory deficit (Neuro) Psychiatric: Psychiatric: Denies anxiety PMFSH Past Medical History Medical History Murmur, cardiac Social History Social History Alcohol intake: unknown Patient Tobacco Use Status: Current everyday Tobacco user Use of substances other than those prescribed or required for medical reasons: No Substance Use Type: Marijuana Advance Directives: No Advance Directives Information Provided: No Physical Exam Vital Signs: Vital Signs: Last Vital Signs Temp 98.1 F 06/04/22 10:13 Pulse 55 06/04/22 10:13 Resp 14 06/04/22 10:13 BP 97/52 L 06/04/22 10:13 Pulse Ox 98 06/04/22 10:13 O2 Del Method 06/04/22 10:13 BMI result Body Mass Index 23.8 Const: General: healthy appearing Nutritional Appearance: average body habitus Orientation/consciousness: oriented to person and patient oriented x3 Limitations: no limitations HEENT: Head: Yes normal to inspection Ears: external ears normal General nose exam: Normal external nose present Mouth: Normal oral and palatal mucosa present and oropharynx normal Throat: Yes posterior oropharynx normal Eyes: General: appearance normal, both eyes and all related structures Neck: Other: supple Neck: Yes normal visual inspection Chest: Chest palpation & inspection: normal inspection of the chest Resp: Auscultation: clear to auscultation bilaterally Cardio: Jugular venous distension: no JVD Rate: regular rate Rhythm: regular rhythm Heart sounds: S1 normal heart sound present and S2 normal heart sound present GI: Inspection: Yes normal to inspection Palpation (GI): Soft to palpation, nontender and No hepatosplenomegaly present Auscultation: normal bowel sounds : General: Yes no CVA tenderness Back/Spine/Pelvis: Back: no CVA tenderness Skin: General skin exam: no rashes or lesions noted Neuro: General: oriented to person and patient oriented x3 Cranial nerves: Yes CN's II-XII intact bilaterally Motor exam (neuro): 5/5 motor strength present throughout Sensory Exam: No Sensory deficit (Neuro) Extrem: General: Yes normal to inspection Psych: Appearance: grossly normal Course Reevaluation(s) Reevaluation #1: covid negative will dc on zofran for gastroenteritis Time: 11:14 MDM - Nausea/Vomiting/Diarrhea Lab Data Labs: Lab Results 06/04/22 Range/Units 10:01 COVID-19 (JANINE) Negative (Negative) COVID-19 Clin Com See Note Discharge Plan Discharge Clinical Impression: Gastroenteritis Patient Disposition: Home, Self-Care Instructions: Acute Nausea and Vomiting (ED), Acute Diarrhea (ED) Prescriptions: New ondansetron 4 mg tablet,disintegrating 4 mg PO Q8H 4 Days Qty: 12 0RF No Action nitrofurantoin monohyd/m-cryst [Macrobid] 100 mg capsule 100 mg PO BID Qty: 14 0RF Rx Instructions: must administer with a meal/food clonidine HCl 0.1 mg tablet 1 tab PO TID propranolol 20 mg tablet 1 tab PO BID buspirone 15 mg tablet 1 tab PO BID clonidine HCl 0.2 mg tablet 1 tab PO TID methadone 10 mg/mL Concentrate 150 mg PO DAILY ondansetron 4 mg tablet,disintegrating 4 mg PO TID PRN (Reason: nausea and vomiting) 5 Days Qty: 10 0RF Referrals: Kolton Pruitt III, MD [Primary Care Provider] - 1 week Stand Alone Forms: Work/School Release
[2022-06-04] MEDS: Ondansetron ODT 4 MG TAB.RAPDIS TRANSLINGU (10:04)
[2022-06-04 10:13] VITALS: BP 97/52; PULSE 55; RESP 14; TEMP 36.7; TEMP 37.2; O2SAT 98
[2022-06-04 10:22] LABS: COVID-19 Test Negative (Negative); IDNOW Serial# 16C4AD1C
== END 2022-06-04 11:27 | disposition home or self-care (01) ==
PROVIDERS: Emergency Provider Emergency Medicine; PCP Internal Medicine
DX: K52.9 Noninfective gastroenteritis and colitis, unspecified (principal); R11.2 Nausea with vomiting, unspecified; Z20.822 Contact with and (suspected) exposure to COVID-19
CPT/HCPCS: 87635; 99283; 99284

== ENCOUNTER → 2022-09-05 08:20 | Outpatient (BNVA) | payer OTHER, SELFPAY | PROVIDERS: PCP Internal Medicine; Visit Provider Internal Medicine | DX: S61.211A Laceration without foreign body of left index finger without damage to nail, initial encounter (principal); W26.9XXA Contact with unspecified sharp object(s), initial encounter | CPT/HCPCS: 12001; 99203 ==

== ENCOUNTER → 2022-09-06 10:17 | Outpatient (BNVA) | payer OTHER, SELFPAY | PROVIDERS: PCP Internal Medicine; Visit Provider Physician Assistant Medical | DX: S61.211A Laceration without foreign body of left index finger without damage to nail, initial encounter (principal); W26.9XXA Contact with unspecified sharp object(s), initial encounter | CPT/HCPCS: 99213 ==

== ENCOUNTER → 2022-09-13 08:19 | Outpatient (BNVA) | payer OTHER, SELFPAY | PROVIDERS: PCP Internal Medicine; Visit Provider Internal Medicine | DX: S61.211A Laceration without foreign body of left index finger without damage to nail, initial encounter (principal); W26.9XXA Contact with unspecified sharp object(s), initial encounter | CPT/HCPCS: 99212; 99213 ==

== ENCOUNTER 2023-02-04 04:01 | Emergency (ER) | payer OTHER, SELFPAY ==
[2023-02-04 04:06] VITALS: BP 136/79; PULSE 129; RESP 20; TEMP 37; O2SAT 98; BMI 23.8
[2023-02-04 04:29] LABS: Basophils Percent Auto 0.4 % (0-2); Eosinophils Absolute Auto 0.1 X10*3/uL (0.0-0.4); Eosinophils Percent Auto 1.4 % (0-4); Hematocrit 40.7 % (37.0-47.0); Hemoglobin 13.2 g/dl (12.0-16.0); Imm Gran Abs Auto 0.02 X10*3/uL (0.00-0.03); Imm Gran Pct Auto 0.3 % (0.0-0.4); Lymphocytes Absolute Auto 2.3 X10*3/uL (1.2-4.9); Lymphocytes Percent Auto 29.1 % (20-40); MANUAL DIFF FLAG NO; Mean Corpuscular HGB Conc 32.4 g/dl (31.0-35.0); Mean Corpuscular Hemoglobin 27.8 pg (27.0-33.0); Mean Corpuscular Volume 85.7 fL (80.0-98.0); Mean Platelet Volume 11.3 fL (9.4-12.3); Monocytes Absolute Auto 0.5 X10*3/uL (0.1-1.2); Monocytes Percent Auto 5.8 % (2-11); Neutrophils Absolute Auto 4.9 x10*3/uL (2.0-8.3); Platelet Count 172 X10*3/uL (160-400); Red Blood Count 4.75 X10*6/uL (4.20-5.50); Red Cell Distribution Width 12.7 % (11.0-16.0); White Blood Count 7.7 X10*3/uL (4.8-10.8)
[2023-02-04 04:30] LABS: Appearance Urine Clear; Color Urine Yellow; Glucose Urine UA Negative (Negative); Leukocyte Esterase Urine Trace (Negative); Nitrite Urine Negative (Negative); PH 5.5 (5.0-9.0); UMIC TRIGGER UACC YES; Urine Blood Large (3+) (Negative); Urine Ketones Negative (Negative); Urine Protein Negative (Neg-Trace)
[2023-02-04 04:35] LABS: Bacteria Urine None Seen (None Seen); Hyaline Casts Urine 0-2 /LPF (0-2); RBC Urine >20 /HPF (0-2); Squamous Epithelial Cell Urine 0-2 /HPF (0-2); WBC Urine 0-5 /HPF (0-5)
[2023-02-04 04:48] LABS: Alanine Aminotransferase 46 U/L (0-31); Albumin Level 4.7 g/dL (3.5-5.0); Alkaline Phosphatase 74 U/L (39-117); Anion Gap 15 (12-20); Aspartate Amino Transferase 36 U/L (5-31); Bilirubin Direct 0.2 mg/dL (0.0-0.5); Bilirubin Total 0.5 mg/dL (0.0-1.0); Blood Urea Nitrogen 6 mg/dL (9-16); Calcium 9.9 mg/dL (8.4-10.2); Carbon Dioxide 25 mmol/L (22-29); Chloride 103 mmol/L (96-108); Creatinine Clr Calc Pharmacy 74.4; Estimated Glomerular Filt Rate > 60; Glucose Random 116 mg/dL (60-115); Lipase 102 U/L (8-78); Potassium 4.1 mmol/L (3.3-5.1); Sodium 139 mmol/L (135-145); Total Protein 7.9 g/dL (6.5-8.0)
--- OUTSIDE RECORDS SUMMARY | 2023-02-04 05:13 | XMS_ITS | Continuity of Care Document ---
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 Name Role Phone Edmond ZIEGLER MD, Kolton Ge Primary Care Physician [place] [facility] [place] 04/24/21 - 04/25/[address] [id number]- Discharge Disposition: A-D/C Walkout Attending Physician: Not on Staff, Attending MD Admitting Physician: Not on Staff, Admitting MD Referring Physician: Not on Staff, Referring MD Allergies, Adverse Reactions, Alerts Substance Reaction Severity Status Bee Stings Active Suboxone Active Vital Signs Most recent to oldest [Reference Range]: 1 2 Oxygen Saturation [94-100 %] 98 % (04/25/21 1:24 AM) 100 % (04/24/21 5:20 PM) Pulse Rate [55-90 bpm] 105 bpm *H* (04/25/21 1:35 AM) 92 bpm *H* (04/24/21 5:20 PM) Blood Pressure [90-138/55-84 mm Hg] 143/ 93mm Hg *H* (04/25/21 1:24 AM) 138/81mm Hg (04/24/21 5:20 PM) Respiratory Rate [16-30 br/min] 20 br/mi n (04/25/21 1:24 AM) 18 br/min (04/24/21 5:20 PM) Temperature [96.8-100.4 DegF] 98.5 DegF (04/24/21 5:20 PM) Mode of Delivery (Oxygen) Room air (04/25/21 1:24 AM) Room air (04/24/21 5:20 PM) Blood pressure sites Arm, right (04/25/21 1:24 AM) Arm, right (04/24/21 5:20 PM) Temperature Route Oral (04/25/21 1:24 AM) Oral (04/24/21 5:20 PM)
--- NOTE | 2023-02-04 06:37 | ED.GENADULT ---
HPI - General Adult General Chief complaint: Back Pain/Injury Stated complaint: Pain lower right side Time Seen by Provider: 02/04/23 06:29 Source: patient Mode of arrival: ambulatory Limitations: no limitations History of Present Illness HPI narrative: Patient is a 27 year old assigned female at with a past medical history of kidney stones presenting to the emergency department today with nausea and flank pain. Patient states that since last night she has had right sided flank pain and nausea. Patient states that she has also been meaning to have her breasts examined as she has noticed they are lumpy and her grandmother had breast cancer. Patient denies any dizziness, lightheadedness, vomiting, fever, chills, blurry vision, double vision, loss of vision, chest pain, difficulty breathing, shortness of breath, back pain, night sweats, pain with urination, increased urinary frequency, increased urinary urgency, blood in her stool, syncope or a near syncopal episode, recent trauma or falls, bowel incontinence, bladder incontinence, bowel retention, bladder retention, or any other complaints at this time. Onset (ago): day(s) (1) Severity: mild Severity scale (1-10): 2 Relieving factors: none Exacerbating factors: none Associated symptoms: nausea/vomiting Treatments prior to arrival: none Related Data Home Medications Medication Instructions Recorded Confirmed buspirone 15 mg tablet 1 tab PO BID 01/18/22 01/18/22 clonidine HCl 0.1 mg tablet 1 tab PO TID 01/18/22 01/18/22 clonidine HCl 0.2 mg tablet 1 tab PO TID 01/18/22 01/18/22 methadone 10 mg/mL oral concentrate 150 mg PO DAILY 01/18/22 01/18/22 propranolol 20 mg tablet 1 tab PO BID 01/18/22 01/18/22 Previous Rx's Medication Instructions Recorded ondansetron 4 mg disintegrating 4 mg PO TID PRN nausea and 01/18/22 tablet vomiting 5 days #10 tabs nitrofurantoin 100 mg PO BID #14 caps 02/24/22 monohydrate/macrocrystals 100 mg capsule (Macrobid) ondansetron 4 mg disintegrating 4 mg PO Q8H 4 days #12 tabs 06/04/22 tablet ondansetron 4 mg disintegrating 4 mg PO Q8H 3 days #9 tabs 02/04/23 tablet Allergies Allergy/AdvReac Type Severity Reaction Status Date / Time bee pollen [BEE STINGS] Allergy Unknown ANAPHYLAXSI Verified 02/04/23 04:10 S. buprenorphine [From SUBOXONE] Allergy Unknown HALLUCINATI Verified 02/04/23 04:10 ONS naloxone [From SUBOXONE] Allergy Unknown HALLUCINATI Verified 02/04/23 04:10 ONS Review of Systems Constitutional: Constitutional: Reports no additional constitutional complaints, Denies chills, Denies fever(s) and Denies night sweats Eyes: Eyes: Reports no additional eye complaints, Denies blurry vision, Denies change in vision, Denies diplopia, Denies eye discharge, Denies loss of vision and Denies eye pain ENT: Denies dizziness Cardiovascular: Cardiovascular: Reports no additional cardiovascular complaints, Denies chest pain, Denies lightheadedness, Denies Loss of Consciousness and Denies dyspnea Respiratory: Respiratory: Reports no additional respiratory complaints and Denies dyspnea Gastrointestinal: Gastrointestinal: Reports no additional gastrointestinal complaints, Denies abdominal pain, Denies melena, Denies hematochezia, Denies change in bowel habits, Denies change in stool character and Reports nausea Genitourinary: Genitourinary: Denies hematuria, Denies urinary frequency, Denies dysuria, Reports flank pain, Denies urinary incontinence, Denies urinary hesitancy and Denies urinary urgency Musculoskeletal: Musculoskeletal: Reports no additional musculoskeletal complaints, Denies numbness and Denies tingling Neurologic: Denies dizziness, Denies loss of vision, Denies numbness and Denies tingling Psychiatric: Psychiatric: Reports no additional psychiatric complaints Endocrine: Endocrine: Reports no additional endocrine complaints Hematologic/Lymphatic: Hematologic/Lymphatic: Reports no additional hematologic/lymphatic complaints Allergic/Immunologic: Allergic/Immunologic: Reports no additional allergic/immunologic complaints [facility] Past Medical History Attestation statement: The following information was validated with the patient. Source: old records reviewed and nursing notes reviewed Medical History Murmur, cardiac Social History Social History Alcohol intake: unknown Patient Tobacco Use Status: Current everyday Tobacco user Substance Use Type: Marijuana Advance Directives: No Advance Directives Information Provided: Yes Physical Exam ED Vital Signs: Vital Signs - 24 hr 02/04/23 04:06 Temperature 98.6 F Pulse Rate 129 H Respiratory Rate 20 Blood Pressure 136/79 Pulse Oximetry 98 Oxygen Delivery Method Room Air BMI result Body Mass Index 23.8 Const General: cooperative, no acute distress, alert and awake Nutritional Appearance: well nourished Orientation/consciousness: patient oriented x3 Limitations: no limitations HENMT Head: Yes normal to inspection and Yes atraumatic Ears: hearing grossly normal bilaterally and external ears normal General nose exam: Normal external nose present, no nasal discharge noted and no epistaxis Face and sinus: Yes normal facial exam, No abrasion and No laceration Mouth: Normal oral and palatal mucosa present, no drooling and no muffled voice Eyes General: appearance normal, both eyes and all related structures Periorbital: periorbital findings normal Eyelids: Yes eyelids normal Conjunctivae: conjunctivae normal Pupils: Equal, round and reactive pupils present EOM: EOMs intact bilaterally Neck Neck: Yes normal visual inspection, Yes full ROM and Yes no lymphadenopathy Chest Chest palpation & inspection: normal inspection of the chest Breast/axilla palpation: other (fibrotic tissue felt in bilateral breasts) Resp Effort & Inspection: normal respiratory effort and able to speak in complete sentences Auscultation: clear to auscultation bilaterally Cardio Rate: regular rate Rhythm: regular rhythm GI Inspection: Yes normal to inspection Palpation (GI): Soft to palpation, not firm, nontender and no guarding Neuro General: patient oriented x3 and moves all extremities Cranial nerves: Yes Equal, round and reactive pupils present Cognition (Neuro): normal cognition Motor exam (neuro): 5/5 motor strength present throughout Sensory Exam: Normal double simultaneous stimulation for sensation Coordination: [id number] test normal Extrem General: Yes normal to inspection, Yes full ROM and Yes capillary refill normal Psych Appearance: grossly normal Mental Status: mental status grossly normal Affect: normal affect Attitude: cooperative Thought process: Normal thought process present Thought content: Normal thought content present Insight: Good insight present (Psych) Medical Decision Making Medical Decision Making MDM Narrative: Patient is a 27 year old assigned female at with a history of kidney stones presenting to the emergency department today with flank pain and breast lumps. Patient's physical exam showed bilateral fibrotic tissue in the breasts - no well defined mass palpated or skin changes seen. Patient's blood work was unremarkable. Patient's urine showed no acute process. I explained my physical exam findings as well as all test results to the patient. I answered all questions asked by the patient. I stressed the importance of the patient taking her medication as prescribed. I stressed the importance of the patient following up with her primary care provider and a general surgeon for her breast concerns. I stressed the importance of the patient returning to the emergency department immediately if her symptoms were to worsen or if she were to develop any dizziness, shortness of breath, difficulty breathing, chest pain, blurry vision, loss of vision, nausea, vomiting, abdominal pain, fever, chills, back pain, or any other complaints. Patient verbalized agreement and understanding with this treatment plan and discharge. Differential Diagnosis Differential Diagnoses: The differential diagnosis associated with the presentation includes bilateral fibrotic breast tissue, flank pain Lab Data MDM Lab Attestation statement: I reviewed the patient's lab results. 02/04/23 04:24 02/04/23 04:24 Labs: Lab Results 02/04/23 02/04/23 02/04/23 Range/Units 04:24 04:24 04:24 WBC 7.7 (4.8-10.8) X10*3/uL RBC 4.75 (4.20-5.50) X10*6/uL Hgb 13.2 (12.0-16.0) g/dl Hct 40.7 (37.0-47.0) % MCV 85.7 (80.0-98.0) fL MCH 27.8 (27.0-33.0) pg MCHC 32.4 (31.0-35.0) g/dl RDW 12.7 (11.0-16.0) % Plt Count 172 D (160-400) X10*3/uL MPV 11.3 (9.4-12.3) fL Immature Gran % (Auto) 0.3 (0.0-0.4) % Neut % (Auto) 63.0 (45-73) % Lymph % (Auto) 29.1 (20-40) % [place] % (Auto) 5.8 (2-11) % Eos % (Auto) 1.4 (0-4) % Baso % (Auto) 0.4 (0-2) % Lymph # (Auto) 2.3 (1.2-4.9) X10*3/uL [place] # (Auto) 0.5 (0.1-1.2) X10*3/uL Eos # (Auto) 0.1 (0.0-0.4) X10*3/uL Baso # (Auto) 0.0 (0.0-0.2) X10*3/uL Abs Immat Gran (auto) 0.02 (0.00-0.03) X10*3/uL Absolute Neuts (auto) 4.9 (2.0-8.3) x10*3/uL Absolute Nucleated RBC 0.000 (0.0-0.012) X10*3/uL Nucleated RBC % (auto) 0.0 (0.0-0.2) /100WBC Sodium 139 (135-145) mmol/L Potassium 4.1 (3.3-5.1) mmol/L Chloride 103 (96-108) mmol/L Carbon Dioxide 25 (22-29) mmol/L Anion Gap 15 (12-20) BUN 6 L (9-16) mg/dL Creatinine 0.89 (0.5-1.4) mg/dL Estim Creat Clear Calc 74.4 Estimated GFR > 60 Random Glucose 116 H (60-115) mg/dL Calcium 9.9 (8.4-10.2) mg/dL Total Bilirubin 0.5 (0.0-1.0) mg/dL Direct Bilirubin 0.2 (0.0-0.5) mg/dL AST 36 H (5-31) U/L ALT 46 H (0-31) U/L Alkaline Phosphatase 74 (39-117) U/L Total Protein 7.9 (6.5-8.0) g/dL Albumin 4.7 (3.5-5.0) g/dL Lipase 102 H (8-78) U/L Urine Color Yellow Urine Appearance Clear Urine pH 5.5 (5.0-9.0) Ur Specific [place] 1.010 (1.005-1.025) Urine Protein Negative (Neg-Trace) mg/dL Urine Glucose (UA) Negative (Negative) mg/dL Urine Ketones Negative (Negative) mg/dL Urine Blood Large (3+) H (Negative) Urine Nitrite Negative (Negative) Ur Leukocyte Esterase Trace H (Negative) Urine RBC >20 H (0-2) /HPF Urine WBC 0-5 (0-5) /HPF Ur Squamous Epith Cells 0-2 (0-2) /HPF Urine Bacteria None Seen (None Seen) Hyaline Casts 0-2 (0-2) /LPF Discharge Plan Discharge Clinical Impression: Abdominal pain, Fibrocystic breast changes Patient Disposition: Home, Self-Care Instructions: Abdominal Pain (ED), Fibrocystic Breast Changes (ED) Additional Instructions: Follow up with your primary care provider and a general surgeon to discuss your breast concerns. Return to the emergency department immediately if your symptoms worsen or if you develop any dizziness, shortness of breath, difficulty breathing, chest pain, blurry vision, loss of vision, nausea, vomiting, abdominal pain, fever, chills, back pain, or any other complaints. Prescriptions: New ondansetron 4 mg tablet,disintegrating 4 mg PO Q8H 3 Days Qty: 9 0RF No Action nitrofurantoin monohyd/m-cryst [Macrobid] 100 mg capsule 100 mg PO BID Qty: 14 0RF Rx Instructions: must administer with a meal/food clonidine HCl 0.1 mg tablet 1 tab PO TID propranolol 20 mg tablet 1 tab PO BID buspirone 15 mg tablet 1 tab PO BID clonidine HCl 0.2 mg tablet 1 tab PO TID methadone 10 mg/mL Concentrate 150 mg PO DAILY ondansetron 4 mg tablet,disintegrating 4 mg PO TID PRN (Reason: nausea and vomiting) 5 Days Qty: 10 0RF ondansetron 4 mg tablet,disintegrating 4 mg PO Q8H 4 Days Qty: 12 0RF Referrals: [facility] [place] General Surgeons [Provider Group] (Call to establish and follow up with a general surgeon to discuss your concerns about your breasts. ) [facility] [place] [facility] [place] [Provider Group] (If you do not want to see your former primary care provider, call to establish and follow up with a new primary care provider.) [facility] [place] [place] Primary Care, Rina [Provider Group] (If you do not want to see your former primary care provider, call to establish and follow up with a new primary care provider.) [facility] [place] [place] Care,Angelica [Provider Group] (If you do not want to see your former primary care provider, call to establish and follow up with a new primary care provider.) Kolton Pruitt III, MD [Primary Care Provider] - Stand Alone Forms: Work/School Release Interventions: ED Discharge Assessment Last Done: 02/04/23 07:01 Discharge Date/Time: 02/04/23 07:02 Print Language: Vincentian
== END 2023-02-04 07:02 | disposition home or self-care (01) ==
PROVIDERS: Emergency Provider Emergency Medicine; PCP Internal Medicine
DX: R10.31 Right lower quadrant pain (principal); R11.0 Nausea; N60.19 Diffuse cystic mastopathy of unspecified breast
CPT/HCPCS: 36415; 80048; 80076; 81001; 83690; 85025; 99283; 99284

== ENCOUNTER 2023-06-10 09:17 | Emergency (ER) | payer OTHER, SELFPAY ==
--- NOTE | ~2023-06-10 | XR_ITS ---
EXAMINATION: XR LUMBOSACRAL SPINE CLINICAL INFORMATION: Chronic low back pain with bilateral sciatica COMPARISON: None available. TECHNIQUE: Three views of the lumbosacral spine. FINDINGS: Vertebral body height and alignment are maintained. There is a questionable spondylolysis at L5. There is also asymmetric sclerosis at the right sacroiliac joint. Incidental note is made of several calculi projected over the mid and lower pole of the right kidney. XR/XR lumbar spine 2-3V IMPRESSION: 1. Probable L5 spondylolysis, better assessed by thin section CT as clinically warranted. 2. Asymmetric right sacroiliac sclerosis, which can be associated with seronegative spondyloarthropathy including psoriatic arthritis. 3. Right renal calculi.
[2023-06-10 09:23] VITALS: BP 169/89; PULSE 107; RESP 18; TEMP 36.7; O2SAT 99; BMI 22.9
--- NOTE | 2023-06-10 10:34 | ED_ITS ---
HPI - General Adult General Chief complaint: Back Pain/Injury Stated complaint: lower back pain Time Seen by Provider: 06/10/23 10:00 Source: patient Mode of arrival: ambulatory Limitations: no limitations History of Present Illness HPI narrative: Patient is a 28-year-old female presenting to the emergency department with complaint of low back pain going on for months but worsening over the past week. States pain radiates to both legs and at times has numbness to bilateral feet. Denies fall or other trauma. Denies fever. Denies saddle anesthesia or bowel or bladder incontinence. Denies dysuria, hematuria, frequency or other urinary symptoms. Denies any abdominal or flank pain. Denies any abnormal vaginal discharge. Reports history of kidney stones, is unsure if symptoms are related. Has been using ibuprofen with little relief. MD complaint: back pain Onset (ago): week(s) Location: back Radiation: distal Severity: severe Quality: aching Pain Consistency: constant Relieving factors: rest Exacerbating factors: movement Associated symptoms: denies other symptoms Treatments prior to arrival: NSAID Related Data Home Medications Medication Instructions Recorded Confirmed buspirone 15 mg tablet 1 tab PO BID 01/18/22 01/18/22 clonidine HCl 0.1 mg tablet 1 tab PO TID 01/18/22 01/18/22 clonidine HCl 0.2 mg tablet 1 tab PO TID 01/18/22 01/18/22 methadone 10 mg/mL oral concentrate 150 mg PO DAILY 01/18/22 01/18/22 propranolol 20 mg tablet 1 tab PO BID 01/18/22 01/18/22 Previous Rx's Medication Instructions Recorded ondansetron 4 mg disintegrating 4 mg PO TID PRN nausea and 01/18/22 tablet vomiting 5 days #10 tabs nitrofurantoin 100 mg PO BID #14 caps 02/24/22 monohydrate/macrocrystals 100 mg capsule (Macrobid) ondansetron 4 mg disintegrating 4 mg PO Q8H 4 days #12 tabs 06/04/22 tablet ondansetron 4 mg disintegrating 4 mg PO Q8H 3 days #9 tabs 02/04/23 tablet cyclobenzaprine 5 mg tablet 5 mg PO TID PRN muscle spasm #10 06/10/23 tabs lidocaine 5 % topical patch 1 patch topical DAILY #15 ea 06/10/23 prednisone 20 mg tablet 40 mg (2 x 20 mg) PO DAILY #10 tabs 06/10/23 Allergies Allergy/AdvReac Type Severity Reaction Status Date / Time bee pollen [BEE STINGS] Allergy Unknown ANAPHYLAXSI Verified 02/04/23 04:10 S. buprenorphine [From SUBOXONE] Allergy Unknown HALLUCINATI Verified 02/04/23 04:10 ONS naloxone [From SUBOXONE] Allergy Unknown HALLUCINATI Verified 02/04/23 04:10 ONS Review of Systems Review of Systems: As per HPI. Yes all other systems are reviewed and are negative Constitutional: Constitutional: Reports as per HPI [facility] Past Medical History Medical History Murmur, cardiac Social History Social History Alcohol intake: unknown Patient Tobacco Use Status: Current everyday Tobacco user Substance Use Type: Marijuana Advance Directives: No Physical Exam ED Vital Signs: Vital Signs - 24 hr 06/10/23 09:23 Temperature 98.1 F Pulse Rate 107 H Respiratory Rate 18 Blood Pressure 169/89 H Pulse Oximetry 99 Oxygen Delivery Method Room Air BMI result Body Mass Index 22.9 Vital signs have been reviewed and appear to be correct. Blood pressure elevated. Heart rate slightly elevated. Respiratory rate normal. Temperature normal. Oxygen saturation normal. Const General: cooperative, healthy appearing and no acute distress Orientation/consciousness: oriented to person, oriented to place, oriented to time and patient oriented x3 Limitations: no limitations HENMT Head: Yes normocephalic and Yes atraumatic Ears: external ears normal General nose exam: Normal external nose present Face and sinus: Yes face symmetric Mouth: oropharynx normal and moist mucous membranes Throat: Yes uvula midline Eyes Pupils: Equal, round and reactive pupils present Neck Neck: Yes normal visual inspection and Yes supple Resp Effort & Inspection: normal respiratory effort and able to speak in complete sentences Auscultation: clear to auscultation bilaterally Cardio Rate: regular rate Rhythm: regular rhythm Heart sounds: S1 normal heart sound present and S2 normal heart sound present GI Palpation (GI): Soft to palpation and nontender Auscultation: normoactive bowel sounds General: Yes no CVA tenderness Back/Spine/Pelvis Back: no CVA tenderness Cervical Spine: normal cervical lordosis, cervical ROM normal, No Cervical spine tenderness and No step off deformity Thoracic/Lumbar Spine: thoracic and lumbar spine normal to inspection, thoraco- lumbar ROM normal, straight leg raise negative bilaterally, pain with thoraco- lumbar ROM, paraspinal muscle tenderness bilaterally in the mid lumbar and in th e lower lumbar, No thoracic spinal tenderness and lumbar spinal tenderness at L3, at L4 and at L5 Pelvis: no pain with anterior-posterior compression and no pain with lateral c ompression Skin General skin exam: elasticity normal and turgor normal Neuro General: oriented to person, oriented to place, oriented to time, patient oriented x3, moves all extremities, no focal motor deficits and CN's II-XI intact bilaterally Cranial nerves: Yes Equal, round and reactive pupils present Cognition (Neuro): normal cognition Extrem General: Yes full ROM, Yes no pedal edema and Yes no calf tenderness Psych Mental Status: mental status grossly normal Affect: normal affect Thought process: Normal thought process present Medical Decision Making Medical Decision Making [facility] Narrative: Patient is a 28-year-old female presenting to the emergency department with complaint of low back pain going on for months but worsening over the past week. On exam patient is awake, A+Ox3, VS WNL, afebrile, normal neurological exam without focal deficits, physical exam findings as above. Given reported symptoms and physical exam findings, initial differential includes lumbar strain, lumbar radiculopathy, disc herniation, vertebral fracture. X-ray notable for probable L5 spondylosis, asymmetric right SI sclerosis. UA positive for trace leukocytes, 6-10 wbc's, epithelial cells also present so likely contamination, do not feel treatment for UTIs indicated at this time. My interpretation is in agreement with the radiologist's interpretation. Patient updated on all results and all questions answered. Will prescribe short course of cyclobenzaprine and prednisone. Instructed patient to follow-up with primary care provider, as she will likely need physical therapy to improve symptoms. Return precautions discussed at bedside. Patient verbalized understanding of and agreement with plan. Differential Diagnosis Differential Diagnoses: The differential diagnosis associated with the presentation includes As per [facility]. Lab Data [facility] Lab Attestation statement: I reviewed the patient's lab results. As per [facility] Labs: Lab Results 06/10/23 06/10/23 Range/Units 10:41 10:42 Urine Color Yellow Urine Appearance Clear Urine pH 6.0 (5.0-9.0) Ur Specific [place] 1.015 (1.005-1.025) Urine Protein Negative (Neg-Trace) mg/dL Urine Glucose (UA) Negative (Negative) mg/dL Urine Ketones Negative (Negative) mg/dL Urine Blood Trace H (Negative) Urine Nitrite Negative (Negative) Ur Leukocyte Esterase Trace H (Negative) Urine RBC 6-10 H (0-2) /HPF Urine WBC 6-10 H (0-5) /HPF Ur Squamous Epith Cells 3-5 (0-2) /HPF Urine Bacteria None Seen (None Seen) Hyaline Casts 0-2 (0-2) /LPF Urine Test NEGATIVE (NEGATIVE) Independent Interpretation I performed an independent interpretation of an: Plain X-Ray Interpretation: probable L5 spondylosis, asymmetric right SI sclerosis. Radiology Impression Discussion of test interpretation with radiology: I have reviewed the radiologist's reading. Radiologist Impression: XR/XR lumbar spine 2-3V IMPRESSION: 1. Probable L5 spondylolysis, better assessed by thin section CT as clinically warranted. 2. Asymmetric right sacroiliac sclerosis, which can be associated with seronegative spondyloarthropathy including psoriatic arthritis. 3. Right renal calculi. External Record Review External record reviewed: Inpatient record, Office record and Outpatient record Prescription Management I considered prescription management with: Pain Medication and Other Discharge Plan Discharge Clinical Impression: Lumbar radiculopathy Patient Disposition: Home, Self-Care Instructions: Acute Low Back Pain (ED) Additional Instructions: You were evaluated in the emergency department today for back pain. Your evaluation did not show signs of medical conditions requiring emergent intervention at this time. We recommended that you use ibuprofen or Tylenol per package directions every 6 hours as needed for pain. If necessary, you can alternate these medications so that you take one medication every 3 hours. For instance, at noon take ibuprofen, then at 3:00 p.m. take Tylenol, then at 6:00 p.m. take ibuprofen. You have been prescribed a muscle relaxer which you may take every 8 hours as needed for spasms. You have been prescribed 5% topical lidocaine patches which you can wear for up to 12 hours in a 24 hour period. Do not apply heat directly over the patches. You are also being prescribed a short course of prednisone, do not take any NSAIDs (ibuprofen, naproxen, etc.) while taking the prednisone but you may resume use of NSAIDs once the prednisone is completed. Please schedule an appointment for follow-up with your primary care physician this week for further evaluation of your symptoms. Return to the emergency department if you experience worsening back pain, difficulty walking, fevers, numbness, tingling, incontinence, groin numbness or tingling, or any other concerning symptoms. Prescriptions: New lidocaine 5 % adhesive patch,medicated 1 patch topical DAILY Qty: 15 0RF Rx Instructions: leave on most painful area for up to 12 hrs cyclobenzaprine 5 mg tablet 5 mg PO TID PRN (Reason: muscle spasm) Qty: 10 0RF prednisone 20 mg tablet 40 mg PO DAILY Qty: 10 0RF No Action nitrofurantoin monohyd/m-cryst [Macrobid] 100 mg capsule 100 mg PO BID Qty: 14 0RF Rx Instructions: must administer with a meal/food clonidine HCl 0.1 mg tablet 1 tab PO TID propranolol 20 mg tablet 1 tab PO BID buspirone 15 mg tablet 1 tab PO BID clonidine HCl 0.2 mg tablet 1 tab PO TID methadone 10 mg/mL Concentrate 150 mg PO DAILY ondansetron 4 mg tablet,disintegrating 4 mg PO TID PRN (Reason: nausea and vomiting) 5 Days Qty: 10 0RF ondansetron 4 mg tablet,disintegrating 4 mg PO Q8H 4 Days Qty: 12 0RF ondansetron 4 mg tablet,disintegrating 4 mg PO Q8H 3 Days Qty: 9 0RF Stand Alone Forms: Work/School Release
[2023-06-10 10:48] LABS: Appearance Urine Clear; Color Urine Yellow; Glucose Urine UA Negative (Negative); Leukocyte Esterase Urine Trace (Negative); Nitrite Urine Negative (Negative); Specific Gravity - Urine 1.015 (1.005-1.025); UMIC TRIGGER UACC YES; Urine Blood Trace (Negative); Urine Ketones Negative (Negative); Urine Protein Negative (Neg-Trace)
[2023-06-10 10:50] LABS: UPreg QC Valid YES; Urine Pregnancy NEGATIVE (NEGATIVE)
[2023-06-10 10:51] LABS: Bacteria Urine None Seen (None Seen); Hyaline Casts Urine 0-2 /LPF (0-2); UACC Culture Trigger YES
== END 2023-06-10 11:41 | disposition home or self-care (01) ==
PROVIDERS: Registered Nurse Emergency; Emergency Provider Emergency Medicine; PCP Internal Medicine
DX: M54.16 Radiculopathy, lumbar region (principal); Z79.899 Other long term (current) drug therapy
CPT/HCPCS: 72100; 81001; 81025; 87086; 99282; 99283